=== PATIENT | male | born 1985 | race Caucasian/White ===

== ENCOUNTER 2022-10-21 08:34 | Observation (INO) | payer OTHER ==
[~2022-10-21] VITALS: Ht 175.3 cm; Wt 102.1 kg
[2022-10-21 12:33] VITALS: BP 127/73
--- NOTE | 2022-10-21 12:36 | NUR ---
PT ARRIVED FROM ER. REPORT RECEIVED FROM JEANNE WHALEY. PT TRANSFERSED SELF TO BED WITH STAND BY ASSIST. PT REPORTS PAIN WITH ACITIVTY BUT OTHERWISE IS STEADY ON FEET. BMAT LEVEL 4. PT REPORTS 5/10 PAIN THAT IS "TOLERATBLE" BUT AGREES "PAIN MEDICAITONS MIGHT HELP." SEE MAR FOR MEDICAITON GIVEN. PT DENIES NAUSEA. PT ASSISTED WITH CHG WIPE DOWN AND REMOVEAL OF STREET CLOTHES. FRESH GOWN PROVIDED. PT ALERT AND ORINETD TO ALL. LUNG SOUNDS CLEAR. HEART TONES REGULAR. MEDICATIONS GIVEN (SEE MAR). FRESH SOCKS PROVIDED. ABDOMEN SOFT BUT TENDER IN RIGHT LOWER QUADRANT. PT REPORTS MODERATE ABDOMINAL DISTENTION STATING "I CAN'T WAIT TO GET RID OF THIS BLOATING." FAMILY AT BEDSIDE AND UPDATED ON PT STATUS AND PLAN OF CARE BY PT. PT DENIES ADDITIONAL REQUESTS OR COMPLAINTS. CALL LIGHT WITHIN REACH. BED RAILS UP.
--- NOTE | 2022-10-21 13:10 | NUR ---
ROUNDING ON PT. HE DENIES NEEDS AT THIS TIME AND RESTING COMFORTABLY IN BED. REPORTS RQ PAIN IS TOLERABLE AFTER TORADOL.
--- NOTE | 2022-10-21 13:21 | NUR ---
REPORT GIVEN TO JEANNE MAZA. WHO IS ASSUMING CARE OF PT. PT CONTINUES RESTING IN BED, WATCHING TV. PT REPORTS 2/10 PAIN IN RIGHT LOWER QUADRANT THAT IS WELL CONTROLLED. PT DENIES ADDITIONAL REQUESTS OR COMPLAINTS. CALL LIGHT WITHIN REACH. BED RAILS UP.
--- NOTE | 2022-10-21 13:50 | NUR ---
REPORT GIVEN TO NIKKI, WHO IS NOW ASSUMING PLAN OF CARE. PT WATCHING TV. NO ADDITIONAL REQUESTS OR COMPLAINTS. PT REPORTS PAIN REMAINS WELL CONTROLLED. CALL LIGHT WIHTIN REACH. BED RAILS UP.
--- NOTE | 2022-10-21 14:05 | NUR ---
Report received from JEANNE Gottlieb.
--- NOTE | 2022-10-21 16:47 | NUR ---
PATIENT LEFT THE FLOOR FOR SURGERY AT THIS TIME.
--- NOTE | 2022-10-21 18:40 | NUR ---
10/21/22 1840 Henrietta Scott 182 PT ARRIVED TO PACU ON RA, O2 SAT 89%. RN STIMULATING PT AND ENCOURAGING PT TO DEEP BREATHE AND COUGH. PT SLOW TO RESPOND. 182 PT O2 90% AND 2L NC PLACED. PT ROLLED TO SIDE AND O2 DECREASED TO 88%. 182 O2 INCREASED TO 4L AND PT FOLLOWING COMMANDS TO ROLL ON BACK AND CONTINUES TO DEEP BREATHE AND COUGH OFF AND ON. 182 [employer] FE[employer]ER AT BEDSIDE LISTENING TO LUNGS, O2 INCREASED TO LOW 90S. [employer] FE[employer]ER REPORTS LUNGS ARE CLEAR. 183 MD AT BEDSIDE TALKING TO PT. 183 PT DENIES PAIN AND NAUSEA, PT REPORTS "I AM COMING BACK AND PAIN IS ALL GONE, THANK YOU." PT RESTING IN BED. 184 O2 DECREASED TO 2L VIA NC.
[2022-10-21 19:02] VITALS: BP 113/60
--- NOTE | 2022-10-21 19:35 | NUR ---
REPORT RECEIVED FROM DAY SHIFT RN. PT RESTING IN ROOM. VSS. SAAFETY PRECAUTIONS MAINTAINED. CALL LIGHT WITHIN REACH. WILL CONTINUE TO MONITOR.
--- NOTE | 2022-10-21 19:45 | NUR ---
IV ALARMING, PT SAID HE BENT HIS ARM. NOW INFUSING. DENIES NEEDS. EDUCATED TO CALL, CALL LIGHT WITHIN REACH, ACKNOWLEDGED RED BUTTON.
[2022-10-21 20:02] VITALS: BP 114/67
--- NOTE | 2022-10-21 21:11 | NUR ---
STOOD SIDE BED, USED URINAL. NOW EATING JELLO, SIPPING ON BEEF BROTH. STANDING AT BEDSIDE. DEEP BREATH AND COUGHING SPLINTING BELLY.
[2022-10-21 21:17] VITALS: BP 132/75
--- NOTE | 2022-10-21 21:25 | NUR ---
PT BACK INTO BED, ABLE TO MOVE SELF UP IN BED, USING PILLOW TO SPLINT. TURNED O2 TO RA, CPOX MONITORING SATS. PT REQUESTED PAIN MEDICATION, PRIMARY RN AWARE.
--- NOTE | 2022-10-21 21:33 | NUR ---
PT ASSESSED AND MEDICATIONS GIVEN. VSS. WEANING PT OFF O2. PT STATED THAT THEY ARE IN NO PAIN PRESENTLY. IVF INFUSING PER ORDER. SAFETY PRECAUTIONS MAINTAINED. CALL LIGHT WITHIN REACH. WILL CONTINUE TO MONITOR.
[2022-10-21 22:05] VITALS: BP 112/69
[2022-10-22 02:05] VITALS: BP 124/67
--- NOTE | 2022-10-22 02:06 | NUR ---
Pt snoring when this RN entered room, easily awakened for vital signs. Pt is alert during vitals, answered questions appropriately, states he "feels good", denies pain or need for pain medications at this time. no other needs, remains on bedside continuous pulse ox.
[2022-10-22 05:10] VITALS: BP 121/70
--- NOTE | 2022-10-22 06:26 | NUR ---
PT RESTED WELL DURING THE SHIFT. VSS. PT AMBULATING TO BATHROOM. GOOD OUTPUT NOTED. IVF INFUSING PER ORDER. PT TOLERATING FOOD AND FLUIDS. TORADOL GIVEN FOR PAIN. SAFETY PRECAUTIONS MAINTAINED. CALL LIGHT WITHIN REACH. WILL CONTINUE TO MONITOR.
[2022-10-22 07:07] VITALS: BP 114/63
--- NOTE | 2022-10-22 07:27 | NUR ---
PT SITTING UP IN BED AWAKE AT TIME OF SHIFT REPORT. DENIES PAIN OR NEEDS OF. CALL LIGHT AND NEEDED ITEMS IN REACH.
--- NOTE | 2022-10-22 09:31 | NUR ---
PT TOLERATES MORNING MEAL. NO INCREASED PAIN OR NAUSEA. STATES HE FEELS PRETTY GOOD, NO PAIN, JUST SORE WITH MOVEMENT. PT VERBALIZES UNDERSTANDING OF NEED TO AMBULATE AND NOT DO ANY LIFTING. AGREES TO NOTIFY STAFF OF ANY INCREASED PAIN OR NEEDS OF
--- NOTE | 2022-10-22 09:38 | NUR ---
PT UP AMBULATING THE ABBOTT.
[2022-10-22 10:40] VITALS: BP 136/82
--- NOTE | 2022-10-22 11:16 | NUR ---
PT AMBULATED SEVERAL LAPS THIS SHIFT, WELL TOLERATED. UP IN THE CHAIR NOW TALKING ON THE PHONE. PT STATES HE ANTICIPATES GOING HOME TODAY, AGREES HE IS READY. DENIES NEEDS AT THIS TIME
--- NOTE | 2022-10-22 12:11 | NUR ---
DR LIU IN TO SEE PT DC INSTRUCTIONS DISCUSSED. PT AGREE'S HE FEELS READY TO GO. ALL QUESTIONS ANSWERED.
[2022-10-22] MEDS ORDERED: ACETAMINOPHEN500 MG PO (12:17)
[2022-10-22] MEDS ORDERED: IBUPROFEN600 MG PO (12:17)
--- NOTE | 2022-10-23 13:05 | OR ---
[facility] [address] [facility] [place] [address] Signed DATE OF OPERATION: 10/21/2022 SURGEON: Chaz Liu MD PREOPERATIVE DIAGNOSIS: Acute appendicitis. POSTOPERATIVE DIAGNOSIS: Acute gangrenous appendicitis. PROCEDURE: Laparoscopic appendectomy. ANESTHESIA: General endotracheal, Susy Castro CRNA and local 10 mL of 0.25% Marcaine with epinephrine. INDICATION: This 37-year-old white man lives in the [place] and has had increasing generalized abdominal pain, now located in the right lower quadrant. He was thoroughly evaluated by Dr. Mendoza in the emergency room at [facility], was found to have clinical findings suggestive of an acute abdomen including appendicitis. A CT scan was performed, which absolutely confirms the idea of appendicitis. The fecalith is noted on review as well. The patient has been fluid resuscitated, given intravenous antibiotics, parenteral pain medications, now to undergo appendectomy, prepped by laparoscopic approach. The risk of bleeding, infection, need for open procedure and other unforeseen complications was reviewed in detail. He understands, wished to proceed. FINDINGS: Indeed he did have acute appendicitis. It was densely matted to the cecum and surrounding tissue and a fibrinous peel was noted. It was absolutely gangrenous, but without sign of actual abscess. The terminal ileum was normal. The gallbladder and liver were normal as well. Small bowel loops were normal. DESCRIPTION OF PROCEDURE: The patient was brought to the operating room, given a general endotracheal anesthetic. Preoperative antibiotic, Ancef and Flagyl had been given. Sequential compression device stockings used and heparin subcutaneously administered. Pepcid was used as well. Electronically Signed By: CHAZ LIU MD 10/23/22 1305 PATIENT NAME: MILADIS HASKINS OPERATIVE REPORT DATE OF : 83 REPORT #: [id number] PHYSICIAN: CHAZ LIU MD PCP: PRETTY CRUZ PAC REPORT IS CONFIDENTIAL AND NOT TO BE RELEASED WITHOUT AUTHORIZATION [facility] [address] [place], [place] [address] Signed After satisfactory general endotracheal anesthesia, the abdomen was clipped and prepared with chlorhexidine solution and draped sterilely. An infraumbilical incision was made and using an open Leobardo cannula technique, the abdomen entered and pneumoperitoneum achieved to a level of 14 mmHg of carbon dioxide gas. Intra-abdominal inspection showed no sign of actual appendix at that time. There was some inflammatory fluid in the right paracolic gutter. An epigastric 12 mm port was placed. The camera was placed to that site. Single hand manipulation did not reveal the appendix and on that basis, a right lower quadrant 5 mm port was placed with 2-hand manipulation. The cecum could be more fully evaluated and ultimately the appendix identified. The appendix was matted and quite edematous and was gangrenous changes. The fibrinous peel was noted associated with it. With various manipulations, the appendix could be freed from the retroperitoneal fatty tissue, ultimately freeing entirely. The appendix was carefully elevated with a Barnhart laparoscopic grasper and a window created between the appendix and the cecum. Once this was accomplished, Endo SARI stapling device was used to transect the appendix, flush with the cecum. There was no sign of bleeding on the staple line. With additional manipulations, the mesoappendix was similarly secured and divided with an Endo-SARI stapling device with vascular load also. The appendix was placed in an endobag and extracted through the infraumbilical port site without problem. Irrigation was undertaken of the right lower quadrant. The staple lines for both vascular and enteric divisions were hemostatic without sign of a problem. Excess irrigation fluid was suctioned free. The trocars removed under direct visualization showing no sign of bleeding. The infraumbilical fascial incision was reapproximated with interrupted 0 Vicryl suture. 10 mL of 0.25% Marcaine with epinephrine was injected locally. The skin was then closed with interrupted 3-0 Vicryl. Steri-Strips were applied. He was ultimately extubated and taken to recovery room in good condition. Sponge, needle, and instrument counts were reported as correct x3. Chaz Liu MD JM/MODL /[id number] Electronically Signed By: CHAZ LIU MD 10/23/22 1305 PATIENT NAME: MILADIS HASKINS OPERATIVE REPORT DATE OF : 83 REPORT #: [id number] PHYSICIAN: CHAZ LIU MD PCP: PRETTY CRUZ PAC REPORT IS CONFIDENTIAL AND NOT TO BE RELEASED WITHOUT AUTHORIZATION [address] [address] Signed cc: Armand Mendoza Copies: MARIBEL MENDOZA ~ Electronically Signed By: CHAZ LIU MD 10/23/22 1305 PATIENT NAME: MILADIS HASKINS OPERATIVE REPORT DATE OF : [birth year] REPORT #: [id number] PHYSICIAN: CHAZ LIU MD PCP: PRETTY CRUZ PAC REPORT IS CONFIDENTIAL AND NOT TO BE RELEASED WITHOUT AUTHORIZATION
--- NOTE | 2022-10-23 13:05 | HP ---
[facility] [address] [place], [place] [address] Signed ADMISSION DATE: 10/21/2022 REASON FOR ADMISSION: Acute appendicitis. HISTORY OF PRESENT ILLNESS: This 37-year-old white man is the son of Monica Haskins, a patient I have had over many years. He was [place] near [facility] and began having vague abdominal pain. He returned to his home where he had progressive abdominal discomfort. The onset of nausea and vomiting, inability to tolerate oral intake. He presented to the emergency room today where he was evaluated by Dr. Juma Mendoza, emergency room physician with findings highly consistent with acute appendicitis. A CT scan was performed, which did in fact confirm appendicitis. He was admitted for further evaluation and care. PAST MEDICAL HISTORY: Unremarkable. He has never had surgery in the past. He does intermittently smoke marijuana. He does have hypertension, though he does not take his medications on a routine basis. His blood pressure today is 178/95. SOCIAL HISTORY: He is unmarried. He is accompanied by a friend and fellow costa. REVIEW OF SYSTEMS: He denies any shortness of breath or chest pain. He has no headache. Denies any chest pain. PHYSICAL EXAMINATION: GENERAL: Somewhat obese white man with a BMI of 33.2. Height 5 feet 9 inches, weight 102 kg. HEENT: Mucous membranes are moist. Trachea is midline. LUNGS: Chest shows normal respiratory excursion. HEART: Pulses regular. ABDOMEN: Somewhat obese. Rovsing sign is equivocal. He has tenderness at McBurney's point. EXTREMITIES: Show no clubbing, cyanosis, or edema. VITAL SIGNS: Temperature 98.6 with pulse of 88, respiratory rate 18, blood pressure 178/95, O2 saturation in room air was 99%. LABORATORY STUDIES: Show white count of 20,000, hematocrit 47.7, platelets 104,000. Electrolytes Electronically Signed By: CHAZ LIU MD 10/23/22 1305 PATIENT NAME: MILADIS HASKINS HISTORY AND PHYSICAL DATE OF : 83 REPORT #: [id number] PHYSICIAN: CHAZ LIU MD PCP: PRETTY CRUZ PAC REPORT IS CONFIDENTIAL AND NOT TO BE RELEASED WITHOUT AUTHORIZATION [facility] [address] [place], [place] [address] Signed essentially normal. Creatinine is 0.92, potassium 3.4. Liver enzymes normal. I reviewed the CT scan in detail. He does have in addition to probable appendicitis the hemangioma of the right hepatic lobe 3 cm in size. ASSESSMENT: The patient has acute appendicitis for which appendectomy has been recommended. The opportunity for nonoperative management was reviewed with him, which I would not generally recommend. He does not scribe to that either. He has begun antibiotic therapy with Flagyl and Ancef. Pepcid will be administered as well. Continued fluid administration is appropriate. Has another emergent operation and is planned right now, he will go to the regular nursing floor, anticipating operation thereafter. MD RANULFO Alvarez/PAOLOL /[id number] cc: Juma Mendoza Copies: JUMA MENDOZA ~ Electronically Signed By: CHAZ LIU MD 10/23/22 1305 PATIENT NAME: MILADIS HASKINS HISTORY AND PHYSICAL DATE OF : 83 REPORT #: [id number] PHYSICIAN: CHAZ LIU MD PCP: PRETTY CRUZ PAC REPORT IS CONFIDENTIAL AND NOT TO BE RELEASED WITHOUT AUTHORIZATION
--- NOTE | 2022-10-26 17:08 | PATH ---
[facility] [address] [facility] [place] [facility] [place], [place] [address] Signed SPECIMEN(S): A APPENDIX SPECIMEN SOURCE: A. APPENDIX CLINICAL HISTORY: Acute appendicitis, abdominal pain, vomiting. FINAL PATHOLOGIC DIAGNOSIS: Appendix, appendectomy: - Morphologic features consistent with acute appendicitis. NA:emh:C2NR MICROSCOPIC EXAMINATION: Histologic sections of all submitted blocks are examined by light microscopy. These findings, together with the gross examination, support the pathologic diagnosis. GROSS DESCRIPTION: The specimen, labeled and designated "Haskins, N," and designated on the requisition "appendix," is received in formalin and consists of Specimen: Appendix with mesoappendix. Dimensions: 12.8 x 1.3 cm. Serosa: Dusky da silva with areas of da silva-white exudate. Defect: Not grossly identified. Inking: Staple line is inked blue. Mucosa: Finely granular. Fecalith: Not grossly identified. Additional: None. Deputy Director sections are submitted in (A1). FB (under the direct supervision of a pathologist) The Gross Description was prepared using a voice recognition system. The report was reviewed for accuracy; however, sound-alike word errors, addition and/or deletions may occur. If there is any question about this report, please contact Client Services. PERFORMING LABORATORY: The technical component was performed by [facility], [address] [place] [id number] (CLIA# [id number]). Professional interpretation was performed by [facility], [address] [place] [address] (CLIA# [id number]). PATIENT NAME: MILADIS HASKINS PATHOLOGY DATE OF : 83 REPORT #: [id number] PHYSICIAN: [facility] PCP: PRETTY CRUZ PAC REPORT IS CONFIDENTIAL AND NOT TO BE RELEASED WITHOUT AUTHORIZATION [address] [place], [place] [address] Signed Diagnostician: Bjorn Elaine MD Pathologist Electronically Signed 10/26/2022 Copies: ~ PATIENT NAME: MILADIS HASKINS PATHOLOGY DATE OF : 83 REPORT #: [id number] PHYSICIAN: [facility] PCP: PRETTY CRUZ PAC REPORT IS CONFIDENTIAL AND NOT TO BE RELEASED WITHOUT AUTHORIZATION
== END 2022-10-22 12:45 | disposition home or self-care (01) ==
LOC: ED 08:34 → MS 08:37 → ED 10:08 → MS 10:08
PROVIDERS: ADMIT Surgery; ATTEND Surgery
PROC: 0DTJ4ZZ Resection of Appendix, Percutaneous Endoscopic Approach (ICD-10-PCS; principal; 2022-10-21 16:45)
DX: K35.891 Other acute appendicitis without perforation, with gangrene (principal); I10 Essential (primary) hypertension; F17.200 Nicotine dependence, unspecified, uncomplicated; E66.9 Obesity, unspecified; Z68.33 Body mass index [BMI] 33.0-33.9, adult
CPT/HCPCS: 00840; 36415; 74177; 80048; 80053; 83690; 85025; 96361; 96372; 96375; 96376; 99285-25; G0378; J0131; J0690; J0694; J1100; J1644; J1885; J2270; J2405; J3480; J7030; J7121; Q9967